=== PATIENT | female | born 1960 | race Caucasian/White ===

== ENCOUNTER 2018-09-28 22:17 | Inpatient (IN) | payer BC ==
[~2018-09-28] VITALS: Ht 165.1 cm; Wt 127.0 kg
[2018-09-28] MEDS ORDERED: Norco 5mg/325mg tab PO ONE (23:15)
[2018-09-29] VITALS: BP 148/76
[2018-09-29] MEDS ORDERED: IBUPROFEN600 MG ORAL ×2 (00:51→14:41)
[2018-09-29] MEDS ORDERED: NORCO 5-325 TA1 EACH ORAL (00:51)
[2018-09-29 02:00] VITALS: BP 150/86
[2018-09-29] MEDS ORDERED: WHEELCHAIR1 EACH MC (02:06)
[2018-09-29 03:40] LABS: BASOPHILS % (AUTO) 1.5 % (0.0-2.0); EOSINOPHILS % (AUTO) 2.7 % (0.0-3.0); HEMATOCRIT 40.4 % (37.0-47.0); HEMOGLOBIN 13.2 G/DL (12.0-16.0); LYMPHOCYTES % (AUTO) 50.6 % (20.0-45.0); MEAN CORPUSCULAR VOLUME 92 FL (80-99); MONOCYTES % (AUTO) 4.5 % (1.0-10.0); NEUTROPHILS % (AUTO) 40.8 % (45.0-75.0); PLATELET COUNT 268 K/UL (150-450); RED BLOOD COUNT 4.41 M/UL (4.20-5.40); RED CELL DISTRIBUTION WIDTH 13.4 % (11.6-14.8); WHITE BLOOD COUNT 11.5 K/UL (4.8-10.8)
[2018-09-29 03:50] LABS: ANION GAP 9 mmol/L (5-15); BLOOD UREA NITROGEN 15 mg/dL (7-18); CALCIUM 8.6 MG/DL (8.5-10.1); CARBON DIOXIDE 28 MMOL/L (21-32); CHLORIDE 102 MMOL/L (98-107); POTASSIUM 3.6 MMOL/L (3.5-5.1); SODIUM 139 MMOL/L (136-145)
[2018-09-29 03:54] LABS: INR 0.9 (0.9-1.1)
[2018-09-29 03:55] LABS: ALANINE AMINOTRANSFERASE 30 U/L (12-78); ALBUMIN 3.4 G/DL (3.4-5.0); ALBUMIN/GLOBULIN RATIO 0.9 (1.0-2.7); ALKALINE PHOSPHATASE 87 U/L (46-116); ASPARTATE AMINO TRANSFERASE 15 U/L (15-37); BILIRUBIN,TOTAL 0.3 MG/DL (0.2-1.0)
--- NOTE | 2018-09-29 04:51 | Emergency Room Report ---
History of Present Illness General Chief Complaint: Lower Extremity Injury Source: Patient Present Illness HPI 58-year-old female presents ED for evaluation. Patient states she tripped and fell tonight. Complaining of pain and swelling to the left ankle. Throbbing, 10 out of 10, nonradiating. Unable to bear weight. Denies any other injuries. No other aggravating relieving factors. Denies any other associated symptoms Allergies: Coded Allergies: PENICILLINS (Verified Allergy, Unknown, 09/28/18) SULFA (SULFONAMIDE ANTIBIOTICS) (Verified Allergy, Unknown, 09/28/18) Patient History Past Medical History: none Past Surgical History: none Pertinent Family History: none Social History: Denies: smoking, alcohol use, drug use Last Menstrual Period: JACLYN Now: No Immunizations: UTD Reviewed Nursing Documentation: PMH: Agreed; PSxH: Agreed Nursing Documentation-PMH Past Medical History: No Stated History Review of Systems All Other Systems: negative except mentioned in HPI Physical Exam Vital Signs Date Time Temp Pulse Resp B/P (MAP) Pulse Ox O2 Delivery O2 Flow Rate FiO2 09/28/18 23:05 98.2 68 18 156/77 97 Room Air Sp02 EP Interpretation: reviewed, normal General Appearance: no apparent distress, alert, GCS 15, non-toxic, obese Head: normocephalic Eyes: bilateral eye normal inspection, bilateral eye PERRL ENT: normal ENT inspection Neck: normal inspection Respiratory: normal inspection Cardiovascular #1: normal inspection Gastrointestinal: normal inspection Rectal: deferred Genitourinary: no CVA tenderness Musculoskeletal: tender - L ankle Neurologic: alert, oriented x3, responsive, motor strength/tone normal, sensory intact, speech normal Psychiatric: normal inspection Skin: normal inspection Lymphatic: normal inspection Procedures Splinting Splinting : Consent: Verbal Hand-Made Type: plaster Splint: posterior long Pre-Proc Neuro Vasc Exam: normal Post-Proc Neuro Vasc Exam: normal Patient Tolerated: Well Complications: None Medical Decision Making Diagnostic Impression: Primary Impression: Ankle fracture Qualified Codes: S82.892A - Other fracture of left lower leg, initial encounter for closed fracture Additional Impression: Unsteady gait ER Course Hospital Course 58-year-old female presents to ED with L ankle pain/swelling s/p fall Differential diagnoses include: fracture, dislocation, contusion Clinical course Patient placed on stretcher. After initial history and physical I ordered pain meds, x-rays of left foot and ankle X-ray show fracture of distal tibia, no dislocation, significant soft tissue swelling Placed in posterior splint, Given crutches we attempted to ambulate she using crutches. Given patient's habitus patient was unable to use the crutches appropriately and was nearly falling multiple times in the ED. Patient states that she is unable to use the crutches. States that she lives home alone. Is not able to climb up steps. For the safety of the patient I believe it's in her best interest to be admitted. Possible placement in a rehabilitation facility Labs reviewed-no leukocytosis noted, electrolytes okay, hemoglobin/hematocrit okay Case discussed with Dr. Mock. Case discussed with Dr. Brink who agreed to accept the patient to his service for further care and support i. I feel this is a highly complex case requiring extensive working including EKG/Rhythm strip, Xray/CT/US, Blood/urine lab work, repeat exams while in ED, and administration of strong opiates/narcotics for pain control, admission to hospital or close patient follow up. Diagnosis - ankle frature, unsteady gait Admitted to floor in serious condition Labs Test 09/29/18 03:25 White Blood Count 11.5 K/UL (4.8-10.8) Red Blood Count 4.41 M/UL (4.20-5.40) Hemoglobin 13.2 G/DL (12.0-16.0) Hematocrit 40.4 % (37.0-47.0) Mean Corpuscular Volume 92 FL (80-99) Mean Corpuscular Hemoglobin 29.9 PG (27.0-31.0) Mean Corpuscular Hemoglobin Concent 32.6 G/DL (32.0-36.0) Red Cell Distribution Width 13.4 % (11.6-14.8) Platelet Count 268 K/UL (150-450) Mean Platelet Volume 5.7 FL (6.5-10.1) Neutrophils (%) (Auto) 40.8 % (45.0-75.0) Lymphocytes (%) (Auto) 50.6 % (20.0-45.0) Monocytes (%) (Auto) 4.5 % (1.0-10.0) Eosinophils (%) (Auto) 2.7 % (0.0-3.0) Basophils (%) (Auto) 1.5 % (0.0-2.0) Prothrombin Time 9.8 SEC (9.30-11.50) Prothromb Time International Ratio 0.9 (0.9-1.1) Activated Partial Thromboplast Time 26 SEC (23-33) Sodium Level 139 MMOL/L (136-145) Potassium Level 3.6 MMOL/L (3.5-5.1) Chloride Level 102 MMOL/L (98-107) Carbon Dioxide Level 28 MMOL/L (21-32) Anion Gap 9 mmol/L (5-15) Blood Urea Nitrogen 15 mg/dL (7-18) Creatinine 1.0 MG/DL (0.55-1.30) Estimat Glomerular Filtration Rate 56.8 mL/min (>60) Glucose Level 158 MG/DL (74-106) Calcium Level 8.6 MG/DL (8.5-10.1) Total Bilirubin 0.3 MG/DL (0.2-1.0) Aspartate Amino Transf (AST/SGOT) 15 U/L (15-37) Alanine Aminotransferase (ALT/SGPT) 30 U/L (12-78) Alkaline Phosphatase 87 U/L (46-116) Total Protein 7.4 G/DL (6.4-8.2) Albumin 3.4 G/DL (3.4-5.0) Globulin 4.0 g/dL Albumin/Globulin Ratio 0.9 (1.0-2.7) Other X-Ray Diagnostic Results Other X-Ray Diagnostic Results #1: X-Ray ordered: L ankle # of Views/Limited Vs Complete: 3 View Indication: Pain EP Interpretation: Yes Interpretation: no dislocation, other - tibia fx Impression: Other - fx Electronically Signed by: Electronically signed by Tate Mendoza MD Other X-Ray Diagnostic Results #2: X-Ray ordered: L foot # of Views/Limited Vs Complete: 3 View Indication: Pain EP Interpretation: Yes Interpretation: no dislocation, other - L anterior tiba fx Impression: Other - fx Electronically Signed by: Electronically signed by Tate Mendoza MD Last Vital Signs Date Time Temp Pulse Resp B/P (MAP) Pulse Ox O2 Delivery O2 Flow Rate FiO2 09/29/18 03:56 98.7 89 16 148/67 100 Room Air Status: improved Disposition: HOME, SELF-CARE Condition: Stable Scripts Wheelchair (WHEELCHAIR) 1 Each Each EACH MC, #1 Prov: Tate Mendoza MD 09/29/18 Hydrocodone Bit/Acetaminophen 5-325* (NORCO 5-325*) 1 Each Tablet 1 TAB ORAL Q6H PRN for For Pain, #10 TAB 0 Refills Prov: Tate Mendoza MD 09/29/18 Ibuprofen* (MOTRIN*) 600 Mg Tablet 600 MG ORAL Q8H PRN for For Pain, #30 TAB 0 Refills Prov: Tate Mendoza MD 09/29/18 Referrals: Finesse Silva MD [facility] Open 24 hour /7 days a week by Appointment Only [address] [facility] [address] Patient Instructions: Ankle Fracture With Rehab-[facility] Tate Mendoza MD Sep 29, 2018 04:51
--- NOTE | 2018-09-29 07:13 | Consultation ---
Consult Note Consult Note patient seen and evaluated. Left ankle pain and swelling consistent with a severe sprain. Xray are not conclusive of a fracture. Mortise is intact. Patient is in a posterior splint. Plan: PT, Mobilization toe touch weight bearing left leg, repeat xrays in 10 days as outpatient. Full consult dictated. Finesse Uribe MD Sep 29, 2018 07:13
--- NOTE | 2018-09-29 08:21 | History & Physical ---
History and Physical History & Physicial patient is seen and examined. Dictation completed today on 821 AM Abhilash Brink MD Sep 29, 2018 08:21
--- NOTE | 2018-09-29 08:22 | General Progress Note ---
Assessment/Plan Assessment/Plan Full Dictatino in progress 1- Consult CM 2- PT/OT Subjective Allergies: Coded Allergies: PENICILLINS (Verified Allergy, Unknown, 09/28/18) SULFA (SULFONAMIDE ANTIBIOTICS) (Verified Allergy, Unknown, 09/28/18) Objective Last 24 Hour Vital Signs Date Time Temp Pulse Resp B/P (MAP) Pulse Ox O2 Delivery O2 Flow Rate FiO2 09/29/18 05:19 Room Air 09/29/18 03:56 98.7 89 16 148/67 100 Room Air 09/29/18 02:00 98.6 88 18 150/86 97 Room Air 09/29/18 01:50 98.6 78 18 148/80 97 Room Air 09/29/18 01:00 68 18 Room Air 09/29/18 00:00 98.6 78 18 148/76 97 Room Air 09/28/18 23:44 98.6 09/28/18 23:05 98.2 68 18 156/77 97 Room Air Intake and Output 09/28/18 09/29/18 19:00 07:00 Intake Total 30 ml Balance 30 ml Intake Oral 30 ml Laboratory Tests 09/29/18 03:25: White Blood Count 11.5H, Red Blood Count 4.41, Hemoglobin 13.2, Hematocrit 40.4 , Mean Corpuscular Volume 92, Mean Corpuscular Hemoglobin 29.9, Mean Corpuscular Hemoglobin Concent 32.6, Red Cell Distribution Width 13.4, Platelet Count 268, Mean Platelet Volume 5.7L, Neutrophils (%) (Auto) 40.8L, Lymphocytes (%) (Auto) 50.6H, Monocytes (%) (Auto) 4.5, Eosinophils (%) (Auto) 2.7, Basophils (%) (Auto) 1.5, Prothrombin Time 9.8, Prothromb Time International Ratio 0.9, Activated Partial Thromboplast Time 26, Sodium Level 139, Potassium Level 3.6, Chloride Level 102, Carbon Dioxide Level 28, Anion Gap 9, Blood Urea Nitrogen 15, Creatinine 1.0, Estimat Glomerular Filtration Rate 56.8, Glucose Level 158H, Calcium Level 8.6, Total Bilirubin 0.3, Aspartate Amino Transf (AST/ SGOT) 15, Alanine Aminotransferase (ALT/SGPT) 30, Alkaline Phosphatase 87, Total Protein 7.4, Albumin 3.4, Globulin 4.0, Albumin/Globulin Ratio 0.9L Height (Feet): 5 Height (Inches): 5.00 Weight (Pounds): 280 Abhilash Brink MD Sep 29, 2018 08:22
[2018-09-29] MEDS: Enoxaparin 40mg Inj SUBQ SCH (09:13)
--- NOTE | 2018-09-29 11:50 | Diagnostic Imaging Report ---
Indication: Left foot pain Technique: 3 views left foot Comparison: None Findings: Distal fibular fracture demonstrated on ankle radiograph is seen on the lateral view. No acute foot fractures. There is hammertoe deformity of the second through fifth digits. Impression: No acute bony trauma to the foot. Distal fibular fracture noted-please refer to separate ankle report Findings overall agree with [facility] preliminary report, with minor variation discussed on the ankle radiograph report
--- NOTE | 2018-09-29 11:53 | Diagnostic Imaging Report ---
Indication: Left ankle pain Technique: 3 views of the left ankle Comparison: none Findings: There is an oblique nondisplaced fracture of the distal fibula. There is overlying soft tissue swelling. No definite tibial fracture demonstrated. Impression: Positive for distal fibular fracture This represents a discrepancy from [facility] preliminary report. Discrepant findings phoned to Dr. Tomilnson in the emergency room at the time of interpretation, as well as communicated to staff via their website
[2018-09-29 12:00] VITALS: BP 158/95
[2018-09-29] MEDS: Norco 5mg/325mg tab ORAL PRN ×2 (13:44→21:56)
[2018-09-29] MEDS ORDERED: RITALIN10 MG ORAL (14:41)
[2018-09-29] MEDS ORDERED: ABILIFY5 MG ORAL (14:41)
[2018-09-29] MEDS ORDERED: LAMICTAL150 MG ORAL (14:41)
[2018-09-29] MEDS ORDERED: ZOLOFT50 MG ORAL (14:41)
--- NOTE | 2018-09-29 15:30 | History and Physical Report ---
DATE OF ADMISSION: 09/29/2018 SOURCE OF INFORMATION: Patient and EMR. HISTORY OF PRESENT ILLNESS: The patient is a 58-year-old female with history of obesity, who tripped over the staircases falling by the injury of the left ankle. Given the fact that the patient lives by herself, she presented to the emergency room, she was found to have severe sprain, of the left ankle. The patient received pain management in the ER. PAST SURGICAL HISTORY: Including but not limited to the back surgeries. ALLERGIES: Penicillin and sulfa. MEDICATIONS: Current hospital medications including, but not limited to, Lovenox 40 mg subcutaneous daily. SOCIAL HISTORY: The patient lives by herself. Denies history of illicit drug abuse, smoking, or alcohol abuse. PHYSICAL EXAMINATION: VITAL SIGNS: Blood pressure 160/70, temperature 98.2, pulse ox 98% on room air, respiratory rate 18, and temperature 98. HEAD AND NECK: Atraumatic and normocephalic. CHEST: Clear to auscultation. HEART: S1, S2. Regular rate and rhythm. ABDOMEN: Soft. No organomegaly. MUSCULOSKELETAL: Positive for diffuse ecchymosis and swelling of the left lower extremity. NEUROLOGIC: The patient is awake, alert, and oriented x3. LABORATORY DATA: Labs dated 09/29/2018 showed WBC 11.5, hemoglobin 13.2, and platelets 268. Sodium 139, potassium 3.6, BUN 15, and creatinine 1. ASSESSMENT: 1. Acute severe sprain of the left ankle secondary to the mechanical fall. 2. Hypertension. 3. Leukocytosis with no gross evidence of active acute infection. 4. Gastrointestinal and deep vein thrombosis prophylaxes. PLAN OF CARE: We will consult PT, OT. We will follow the input from orthopedic service, Dr. Silva. Continue pain management. Time of this dictation does not reflect the actual time of encounter. Abhilash Brink M.D. DR: IOANA JOB#: [id number] CC:
[2018-09-29 16:00] VITALS: BP 156/79
--- NOTE | 2018-09-29 16:45 | Consultation ---
DATE OF CONSULTATION: 09/29/2018 ORTHOPEDIC CONSULTATION: CONSULTING PHYSICIAN: Finesse Silva M.D. REASON FOR CONSULTATION: Possible left ankle fracture. BRIEF HISTORY: The patient is a very pleasant 58-year-old female who presented to the ER after a mechanical trip and fall. She complained about pain and swelling of the left ankle. She cannot bear weight. X-rays were obtained, which showed a possible cortical abnormality on the distal tibia on the lateral side only. Mortise is intact. However, she has obesity and she is not able to really ambulate. She was falling down on crutches at the emergency room and therefore she was admitted to the hospital. It should be noted the patient lives alone and has multiple stairs at home. PAST MEDICAL HISTORY: Significant for history of depression. PAST SURGICAL HISTORY: None. MEDICATIONS: Please see chart. ALLERGIES: She is allergic to penicillin and sulfa. SOCIAL HISTORY: She lives alone. She does not smoke or drink. She has 5 to 7 stairs at home. REVIEW OF SYSTEMS: Noncontributory. PHYSICAL EXAMINATION: Examination of the ankle revealed that she is in a well-padded splint. There is evidence of obesity. There is no skin ulcerations that could be appreciated. She had some swelling about the left ankle. She is able to move her toes. X-RAYS: X-ray of left ankle is reviewed. I personally reviewed these. Also x-ray of the foot are reviewed. The mortise is intact. The fibula is intact. The tibia is intact. The medial malleolus appears to be intact. On the lateral view, no significant cortical abnormalities could be appreciated. IMPRESSION: Left ankle severe sprain, possible cortical abnormality on the lateral view, read by radiologist. PLAN: At this time, I had discussion with the patient. I explained to her my findings. I recommend to start on physical therapy, toe-touch weightbearing on the left lower extremity. She should keep it elevated and iced. I will ask to see her back in about 10 days in my office for repeat x-rays and to put her in a cast if there is a fracture or put in a walking brace so she can start weightbearing. All questions were answered. The patient understands and agrees. I will see her back as outpatient. Finesse Barbra Silva DR: CHIKI JOB#: [id number] CC:
--- NOTE | 2018-09-29 20:04 | Consultation ---
Consult Note Assessment/Plan [id number] Aiden Freire MD Sep 29, 2018 20:04
[2018-09-29 20:45] VITALS: BP 133/76
--- NOTE | 2018-09-29 23:00 | Consultation ---
DATE OF CONSULTATION: 09/29/2018 PHYSICAL MEDICINE AND REHABILITATION CONSULTATION CONSULTING PHYSICIAN: Aiden Freire M.D. REQUESTING PHYSICIAN: Abhilash Brink M.D. ORTHOPEDIC SURGEON: Finesse Silva M.D. CHIEF COMPLAINT: Difficulty with ambulation and activity of daily living in a patient status post fall from stairs with left ankle fracture. HISTORY OF PRESENT ILLNESS: The patient is a 58-year-old female with history of psychiatric disorder, apparently depression who was in an independent level of function while walking down stairs getting out of her apartment, which has about 6 steps to get out, she landed on the floor and twisted her left ankle. Neighbors/friends helped and called paramedics. The patient was brought to the emergency room at [facility]. X-ray of the left ankle showed distal fibular fracture. The patient was seen by Dr. Silva, orthopedic surgeon and left lower limb cast splint applied and instructed for the patient to be toe-touch weightbearing and work with physical therapy with assistive device. I was asked today to evaluate the patient for rehabilitation. The patient has pain of the left ankle and is in a splint. She had mild leukocytosis, elevated white count over 11,000 and elevated blood sugar as well. She has significant drop on the level of function, difficulty with her gait, and activity of daily living. PAST MEDICAL AND SURGICAL HISTORY: History of hip fracture and surgery about a year ago. According to medical records, she had a history of back surgery, which detail is not really clear. History of psychiatric disorder/depression. ALLERGIES: Penicillin and sulfa. MEDICATIONS: Lamictal 300 mg daily, Abilify 5 mg daily, Zoloft 50 mg daily, Ritalin 20 mg daily, Protonix 40 mg daily, Lovenox 40 mg daily subcutaneously, Tylenol p.r.n., and [place] p.r.n. FAMILY/SOCIAL HISTORY: The patient lives alone. 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 She does not have any children. No history of tobacco, alcohol, or illicit drugs. Prior level of function was independent for ambulation and activity of daily living. She lives in an apartment with 6 steps to enter. The patient's current level of function, minimal assistance for bed mobility and transfer with front wheel walker. Able to ambulate some with only about 3 feet distances with minimal to moderate assistance level. Denies any significant family medical history. REVIEW OF SYSTEMS: CONSTITUTIONAL: No chills or fever. EYES: Denies diplopia. ENT: Denies dysphagia. CARDIOVASCULAR: No chest pain. PULMONARY: No shortness of breath. GASTROINTESTINAL: No abdominal pain. GENITOURINARY: No dysuria or hematuria. MUSCULOSKELETAL: Left ankle pain. INTEGUMENTARY: No cancerous lesion. NEUROLOGIC: The patient denies spasm, tics, or numbness. PHYSICAL EXAMINATION: VITAL SIGNS: Blood pressure 150/70, respiratory rate 18 per minute, heart rate 84 per minute, temperature 98 degrees Fahrenheit, and O2 saturation 94%. Height is 165 cm, weight 127 kg. Body mass index 46.6. GENERAL: No acute distress. HEENT: No facial droop. NECK: Supple with no lymphadenopathy. HEART: Regular rhythm and rate. PULSES: Bilateral carotid, femoral, and dorsalis pedis palpable. LUNGS: Clear to auscultation bilaterally. ABDOMEN: Soft, nontender, and nondistended. Normal bowel sounds with no palpable abnormal mass. Obese. EXTREMITIES: No pretibial edema on the right side. Left lower limb with left short cast splint in place. SKIN: No rashes. NEUROLOGIC: The patient is alert and awake. She is oriented. Movement of bilateral upper and right lower limb antigravity. Left wound lower limb movements minimal, complaining of pain. LABORATORY DATA: Sodium 139, potassium 3.6, BUN 15, creatinine 1, glucose 158, and albumin 0.9. AST and ALT 16 and 30. WBC 11.5, hemoglobin 13.2, and platelets 268,000. ASSESSMENT: The patient is a 58-year-old female with: 1. Status post mechanical fall from 1 step while getting out of her apartment causing left distal fibular acute fracture/left ankle fracture, status post short cast splint placement, toe-touch weightbearing of left lower limb per orthopedic surgeon. 2. Limb pain. 3. Debility and functional decline. 4. Gait abnormality. 5. Psychiatric disorders. 6. Depression. 7. Leukocytosis. 8. Malnutrition. 9. Morbid obesity with body mass index over 46. 10. Hypertension, based on findings on this admission blood pressure 158/95 and 156/79 reported. RECOMMENDATIONS: This patient needs physical therapy, occupational therapy, and 24 hours nursing care. Physical therapy for range of motion, transfer training, endurance, balance and gait training fall prevention with appropriate assistive device. Occupational therapy for activities of daily living, equipment function, and transfer evaluation, and training upper extremity range of motion and strengthening exercise. Nursing for evaluation of her bowel and bladder, medication regimen, skin care prevention of pressure ulcer, patient and family education. Fall precaution, pressure ulcer precaution, cardiac precaution. Toe-touch weightbearing as per instructed by orthopedic surgeon at least for the next 10 days with plan of switch from splint to cast or CAM walker and being weightbearing as tolerated per Dr. Silva. To be followed by orthopedic surgeon. This patient will benefit from acute inpatient rehabilitation placement, pending insurance authorization. Continue medical and surgical management per medical and surgical team. Thank you for your consultation. Aiden Freire M.D. DR: KARLENE JOB#: [id number] CC:
[2018-09-30 00:36] VITALS: BP 140/78
[2018-09-30 04:21] VITALS: BP 134/85
[2018-09-30 07:21] LABS: BASOPHILS % (AUTO) 1.3 % (0.0-2.0); EOSINOPHILS % (AUTO) 2.8 % (0.0-3.0); HEMATOCRIT 37.4 % (37.0-47.0); HEMOGLOBIN 12.5 G/DL (12.0-16.0); LYMPHOCYTES % (AUTO) 51.1 % (20.0-45.0); MEAN CORPUSCULAR VOLUME 92 FL (80-99); MONOCYTES % (AUTO) 4.4 % (1.0-10.0); NEUTROPHILS % (AUTO) 40.4 % (45.0-75.0); PLATELET COUNT 217 K/UL (150-450); RED BLOOD COUNT 4.07 M/UL (4.20-5.40); RED CELL DISTRIBUTION WIDTH 13.6 % (11.6-14.8); WHITE BLOOD COUNT 8.8 K/UL (4.8-10.8)
[2018-09-30 08:00] VITALS: BP 139/86
[2018-09-30 08:12] LABS: ANION GAP 5 mmol/L (5-15); BLOOD UREA NITROGEN 16 mg/dL (7-18); CALCIUM 8.9 MG/DL (8.5-10.1); CARBON DIOXIDE 31 MMOL/L (21-32); CHLORIDE 104 MMOL/L (98-107); CREATININE 1.1 MG/DL (0.55-1.30); POTASSIUM 4.5 MMOL/L (3.5-5.1); SODIUM 140 MMOL/L (136-145)
[2018-09-30] MEDS: Sertraline 50mg tab ORAL SCH (08:16)
[2018-09-30] MEDS: LaMICtal 150mg tab ORAL SCH (08:16)
[2018-09-30] MEDS: Enoxaparin 40mg Inj SUBQ SCH (08:26)
[2018-09-30 12:00] VITALS: BP 150/85
--- NOTE | 2018-09-30 14:40 | General Progress Note ---
Assessment/Plan Assessment/Plan S, O: appears comfortable, participating in OT/PT PHYSICAL EXAMINATION: HEAD AND NECK: Atraumatic and normocephalic. CHEST: Clear to auscultation.HEART: S1, S2. Regular rate and rhythm. ABDOMEN: Soft. No organomegaly.MUSCULOSKELETAL: Positive for diffuse ecchymosis and swelling of the left lower extremity.NEUROLOGIC: The patient is awake, alert, and oriented x3. Meds: Reviewed and reconciled ASSESSMENT: 1. Acute severe sprain of the left ankle secondary to the mechanical fall. 2. Hypertension. 3. Leukocytosis with no gross evidence of active acute infection. 4. Gastrointestinal and deep vein thrombosis prophylaxes. PLAN OF CARE: Disposition to plan of care, in progress Subjective Allergies: Coded Allergies: PENICILLINS (Verified Allergy, Unknown, 09/28/18) SULFA (SULFONAMIDE ANTIBIOTICS) (Verified Allergy, Unknown, 09/28/18) Objective Last 24 Hour Vital Signs Date Time Temp Pulse Resp B/P (MAP) Pulse Ox O2 Delivery O2 Flow Rate FiO2 09/30/18 12:00 98.3 81 20 150/85 (106) 94 09/30/18 09:00 Room Air 09/30/18 08:47 98.1 09/30/18 08:00 98.2 85 18 139/86 (103) 95 09/30/18 04:21 98.1 79 18 134/85 (101) 94 09/30/18 00:36 99.0 89 18 140/78 (98) 93 09/29/18 22:26 97.9 09/29/18 21:56 Room Air 09/29/18 20:45 97.9 71 18 133/76 (95) 92 09/29/18 16:00 98.0 84 18 156/79 (104) 94 Intake and Output 09/29/18 09/30/18 19:00 07:00 Intake Total 1040 ml 240 ml Balance 1040 ml 240 ml Intake Oral 1040 ml 240 ml # Voids 3 3 # Bowel Movements 1 Laboratory Tests 09/30/18 07:00: White Blood Count 8.8, Red Blood Count 4.07L, Hemoglobin 12.5, Hematocrit 37.4, Mean Corpuscular Volume 92, Mean Corpuscular Hemoglobin 30.6, Mean Corpuscular Hemoglobin Concent 33.3, Red Cell Distribution Width 13.6, Platelet Count 217, Mean Platelet Volume 5.7L, Neutrophils (%) (Auto) 40.4L, Lymphocytes (%) (Auto) 51.1H, Monocytes (%) (Auto) 4.4, Eosinophils (%) (Auto) 2.8, Basophils (%) (Auto ) 1.3, Sodium Level 140, Potassium Level 4.5, Chloride Level 104, Carbon Dioxide Level 31, Anion Gap 5, Blood Urea Nitrogen 16, Creatinine 1.1, Estimat Glomerular Filtration Rate 50.8, Glucose Level 121H, Calcium Level 8.9 Height (Feet): 5 Height (Inches): 5.00 Weight (Pounds): 280 Abhilash Brink MD Sep 30, 2018 14:40
[2018-09-30 16:00] VITALS: BP 148/86
--- NOTE | 2018-09-30 19:08 | General Progress Note ---
Progress Note Progress Note REHAB F/U PROGRESS NOTE: ALERT AND AWAKE LEFT ANKLE PAIN WITH GOOD CONTROL +BM GOOD PO INTAKE PER PT >> Other Precautions * LLE TTWB Rolling * Independent * Stand By Assistance Supine to Sit * Minimal Assistance * Contact Guard Assistance Bed Mobility Assistive Devices * Bed Rail Sit to Stand * Minimal Assistance * Contact Guard Assistance Bed to Chair/Wheelchair * Minimal Assistance * Contact Guard Assistance Transfer assistive devices * Front wheel walker REVIEW OF SYSTEMS: EYES: Denies diplopia. ENT: Denies dysphagia. CARDIOVASCULAR: No chest pain. PULMONARY: No shortness of breath. GASTROINTESTINAL: No abdominal pain. GENITOURINARY: No dysuria or hematuria. MUSCULOSKELETAL: Left ankle pain. NEUROLOGIC: The patient Denies spasm, tics, or numbness. PHYSICAL EXAMINATION: VITAL SIGNS: PER CHART, NOTED. HEENT: No facial droop. NECK: Supple HEART: Regular rhythm and rate. PULSES: Bilateral carotid, femoral, and dorsalis pedis palpable. LUNGS: Clear to auscultation bilaterally. ABDOMEN: Soft, nontender, and nondistended. Normal bowel sounds EXTREMITIES: No pretibial edema on the right side. Left lower limb with left short cast splint in place. NEUROLOGIC: The patient is alert and awake. Movement of bilateral upper and right lower limb antigravity. Left wound lower limb movements minimal, complaining of pain. LABORATORY DATA: PER CHART, NOTED. ASSESSMENT: The patient is a 58-year-old female with: 1. Status post mechanical fall from 1 step while getting out of her apartment causing left distal fibular acute fracture/left ankle fracture, status post short cast splint placement, toe-touch weightbearing of left lower limb per orthopedic surgeon. 2. Limb pain. 3. Debility and functional decline. 4. Gait abnormality. 5. Psychiatric disorders. 6. Depression. 7. Leukocytosis. 8. Malnutrition. 9. Morbid obesity with body mass index over 46. 10. Hypertension, based on findings on this admission blood pressure 158/95 and 156/79 reported. RECOMMENDATIONS: 24 hours nursing care. Physical therapy for range of motion, transfer training, endurance, balance and gait training fall prevention with appropriate assistive device. Occupational therapy for activities of daily living, equipment function, and transfer training upper extremity range of motion and strengthening exercise. Nursing for her bowel and bladder, medication regimen, skin care prevention of pressure ulcer, patient and family education. Fall precaution, pressure ulcer precaution, cardiac precaution. Toe-touch weightbearing as per instructed by orthopedic surgeon . To be followed by orthopedic surgeon. acute inpatient rehabilitation placement, pending insurance authorization. Continue medical and surgical management per medical and surgical team. D/W PMD. Aiden Freire MD Sep 30, 2018 19:08
[2018-09-30 20:00] VITALS: BP 140/73
[2018-10-01] VITALS: BP 125/60
[2018-10-01 08:00] VITALS: BP 134/75
[2018-10-01] MEDS: LaMICtal 150mg tab ORAL SCH (08:18)
[2018-10-01] MEDS: Sertraline 50mg tab ORAL SCH (08:19)
[2018-10-01] MEDS: Enoxaparin 40mg Inj SUBQ SCH (08:22)
--- NOTE | 2018-10-01 09:41 | General Progress Note ---
Assessment/Plan Assessment/Plan S, O: appears comfortable, participating in OT/PT PHYSICAL EXAMINATION: HEAD AND NECK: Atraumatic and normocephalic. CHEST: Clear to auscultation.HEART: S1, S2. Regular rate and rhythm. ABDOMEN: Soft. No organomegaly.MUSCULOSKELETAL: Positive for diffuse ecchymosis and swelling of the left lower extremity.NEUROLOGIC: The patient is awake, alert, and oriented x3. Meds: Reviewed and reconciled ASSESSMENT: 1. Acute severe sprain of the left ankle secondary to the mechanical fall. 2. Hypertension. 3. Leukocytosis with no gross evidence of active acute infection. 4. Gastrointestinal and deep vein thrombosis prophylaxes. PLAN OF CARE: Disposition to accepting ARU, in progress Current medical mgt Subjective Allergies: Coded Allergies: PENICILLINS (Verified Allergy, Unknown, 09/28/18) SULFA (SULFONAMIDE ANTIBIOTICS) (Verified Allergy, Unknown, 09/28/18) Objective Last 24 Hour Vital Signs Date Time Temp Pulse Resp B/P (MAP) Pulse Ox O2 Delivery O2 Flow Rate FiO2 10/01/18 08:49 97.5 10/01/18 08:00 97.8 94 20 134/75 (94) 94 10/01/18 00:00 97.5 78 20 125/60 (81) 94 09/30/18 21:00 Room Air 09/30/18 20:00 97.7 84 18 140/73 (95) 94 09/30/18 16:00 98.6 82 20 148/86 (106) 96 09/30/18 12:00 98.3 81 20 150/85 (106) 94 Intake and Output 09/30/18 10/01/18 18:59 06:59 Intake Total 1330 ml 240 ml Balance 1330 ml 240 ml Intake Oral 1330 ml 240 ml # Voids 3 2 # Bowel Movements 1 1 Height (Feet): 5 Height (Inches): 5.00 Weight (Pounds): 280 Abhilash Brink MD Oct 01, 2018 09:41
[2018-10-01 12:00] VITALS: BP 123/75
--- NOTE | 2018-10-03 07:57 | Discharge Summary ---
Discharge Summary Discharge Summary _ DATE OF ADMISSION: 09/29/2018 DATE OF DISCHARGE: 10/01/2018 DISCHARGED BY:Dr. Brink REASON FOR ADMISSION: 58 years old female with no significant past medical history , presented to emergency room for evaluation. Patient tripped and fell prior to presentation. She complained of pain and swelling in the left ankle and reported as nonradiating, throbbing, 10 out of 10 pain . Patient was unable to bear weight. Patient denied any other injury. No chest pain, no shortness of breath. No fever, no chills. Upon evaluation vital signs were stable. Laboratory workup revealed mild leukocytosis WBC 11.5, stable hemoglobin hematocrit. Stable electrolytes and renal parameters. X-ray of the left ankle reveal distal fibular fracture. X-ray of the left foot demonstrated no acute bony trauma in the food. Distal fibular fracture noted. In emergency department patient was placed in a posterior splint and was admitted for further management CONSULTANTS: Orthopedic surgery Dr. Silva Physical medicine and rehabilitation : Dr Freire [facility] COURSE: Patient admitted to medical surgical floor. Orthopedic surgery and physical medicine and rehabilitation consults were requested. Orthopedic surgery recommended physical therapy with toe-touch weightbearing to left lower extremity as tolerated. Elevate lower extremity. Patient to follow-up with surgeon in the office in 10 days for repeat x-ray. Patient was placed in short cast splint with plan to switch from splint to cast or CAM walker after follow up appointment with ortho surgeon . Patient was working with physical therapy. Fall precautions were maintained. Patient was working with ont wheel walker and demonstrated unsteady gait with toe-touch weightbearing to left lower extremity with minimal assistance. Pain management was addressed. Home medications were continued, including psychiatric medication. Blood pressure was closely monitored and managed with current regimen. DVT and GI prophylaxis provided. Cad Design Engineer recommended placement to acute rehabilitation facility for further management. Placement was found at the [facility] Patient was transferred for further management. FINAL DIAGNOSES: Status post mechanical fall Left distal fibular acute fracture of left ankle , status post short cast splint placement Morbid obesity with BMI over 46 Hypertension Gait abnormality Depression Leukocytosis -resolved ( likely reactive) Psychiatric disorder. DISCHARGE MEDICATIONS: See Medication Reconciliation list. DISCHARGE INSTRUCTIONS: Patient was transferred to [facility] for further management. Follow-up with medical doctor at the facility. Rodri Dai have been assigned to dictate discharge summary for this account. I was not involved in the patient's management. Rose Marie Wells NP Oct 03, 2018 07:57
== END 2018-10-01 15:35 | disposition short-term general hospital (02) | DRG 563 ==
LOC: EMR 23:15 → 3E 09-29 03:29 → EDBEDREQ 09-29 03:49 → 3E 09-29 04:30
PROC: 2W3RX1Z Immobilization of Left Lower Leg using Splint (ICD-10-PCS; principal; 2018-09-29)
DX: S82.832A Other fracture of upper and lower end of left fibula, initial encounter for closed fracture (principal); Z68.42 Body mass index [BMI] 45.0-49.9, adult; W10.9XXA Fall (on) (from) unspecified stairs and steps, initial encounter; E66.01 Morbid (severe) obesity due to excess calories; I10 Essential (primary) hypertension; R26.89 Other abnormalities of gait and mobility; F32.9 Major depressive disorder, single episode, unspecified; F99 Mental disorder, not otherwise specified; Z88.0 Allergy status to penicillin; Z88.2 Allergy status to sulfonamides; Z60.2 Problems related to living alone
CPT/HCPCS: 29505; 36415; 80048; 80053; 85025; 85610; 85730; 96372; 99283